=== PATIENT | female | born 1985 | race African-American/Black ===

== ENCOUNTER 2019-09-20 19:44 | Inpatient (IN) | payer OTHER ==
[~2019-09-20] VITALS: Ht 170.2 cm; Wt 70.3 kg
--- NOTE | 2019-09-20 20:00 | NUR ---
ED Nurse Note: pt presents to ED c/o uterine pain after having a uterine fibroid embolization procedure on tuesday. pt has not had a BM since then, cannot keep meds down, she was prescribed percocet and tramadol. pt reports mild bleeding. advised by OB Dr. Davenport to come in to ED. PT AO4. VSS. AMBULATORY WITH STEADY GAIT. REPORTS PAIN 10/10; FACIAL GRIMACING AND GRASPING NOTED. CHANGED INTO GOWN; ATTACHED TO MONITOR. BED LOCKED AT LOWEST POSTION; SIDE RAILS RAISED.
[2019-09-20] MEDS ORDERED: Omnipaque-300 100ml vial INJ PRN (20:15)
[2019-09-20 20:16] VITALS: BP 131/77
[2019-09-20] MEDS ORDERED: Morphine Sulfate 4mg/ml Inj (IV USE ONLY) ONE (20:22)
[2019-09-20 20:25] LABS: EOSINOPHILS % (AUTO) 0.2 % (0.0-3.0); HEMATOCRIT 34.9 % (37.0-47.0); HEMOGLOBIN 10.8 G/DL (12.0-16.0); LYMPHOCYTES % (AUTO) 9.3 % (20.0-45.0); MEAN CORPUSCULAR VOLUME 74 FL (80-99); MONOCYTES % (AUTO) 4.8 % (1.0-10.0); NEUTROPHILS % (AUTO) 84.8 % (45.0-75.0); PLATELET COUNT 309 K/UL (150-450); RED BLOOD COUNT 4.74 M/UL (4.20-5.40); RED CELL DISTRIBUTION WIDTH 21.1 % (11.6-14.8); WHITE BLOOD COUNT 11.1 K/UL (4.8-10.8)
--- NOTE | 2019-09-20 20:27 | NUR ---
ED Nurse Note: IV ACCESS ESTABLISHED. BLOOD COLLECTED; SENT DOWN TO LAB. UNABLE TO OBTAIN URINE; PT STATES SHE WILL PROVIDE WHEN ABLE. RECEIVED VERBAL ORDER FROM [facility] FOR 4MG MORPHINE IVP; NOTED AND CARRIED OUT.
[2019-09-20] MEDS ORDERED: Morphine Sulfate 4mg/ml Inj (IV USE ONLY) IVP ONE ×2 (20:30→21:15)
[2019-09-20 20:36] LABS: INR 0.9 (0.9-1.1)
[2019-09-20 20:53] LABS: ANION GAP 18 mmol/L (5-15); BLOOD UREA NITROGEN 6 mg/dL (7-18); CALCIUM 9.7 MG/DL (8.5-10.1); CARBON DIOXIDE 23 MMOL/L (21-32); CHLORIDE 99 MMOL/L (98-107); CREATININE 0.9 MG/DL (0.55-1.30); SODIUM 139 MMOL/L (136-145)
[2019-09-20 20:57] LABS: ALANINE AMINOTRANSFERASE 25 U/L (12-78); ALBUMIN 4.1 G/DL (3.4-5.0); ALBUMIN/GLOBULIN RATIO 0.9 (1.0-2.7); ALKALINE PHOSPHATASE 69 U/L (46-116); ASPARTATE AMINO TRANSFERASE 26 U/L (15-37); BILIRUBIN,TOTAL 0.5 MG/DL (0.2-1.0)
--- NOTE | 2019-09-20 21:10 | NUR ---
ED Nurse Note: RECEIVED VERBAL ORDER FROM [facility] FOR 4MG MORPHINE IVP; NOTED AND CARRIED OUT. URINE COLLECTED; SENT DOWN TO LAB.
--- NOTE | 2019-09-20 21:33 | NUR ---
NURSE NOTES: Received report from EMANUEL Mendez via phone. Pt will come to the unit in an hour.
--- NOTE | 2019-09-20 21:39 | Diagnostic Imaging Report ---
Clinical Indication: Abdominal pain, status post uterine fibroid embolization 2 days prior, no bowel movements, unable to keep medications down Technique: No oral contrast utilized, per emergency room physician request IV administration nonionic contrast. Venous phase spiral acquisition obtained through the abdomen and pelvis. Multiplanar reconstructions were generated. Total dose length product 284 mGycm. CTDIvol(s) 5 mGy. Dose reduction achieved using automated exposure control Comparison: none Findings: Uterus is enlarged, with multiple masses. The 2 largest of these are enhancing, contains linear collections of gas. A small amount of free fluid in the pelvic cul-de-sac. The ovaries are unremarkable. Appendix is not definitely visualized, but there are no findings to suggest acute appendicitis. The ascending colon is stool-filled. The transverse colon is gas filled and borderline distended. The descending colon is nondistended. Small bowel loops are nondistended, although a few small bowel loops are mildly fluid-filled and prominent. The distal esophagus, stomach, duodenum are unremarkable. The gallbladder contains what is presumably contrast from the prior uterine fibroid embolization procedure. The liver, bile ducts, pancreas, spleen, adrenals, kidneys are all unremarkable. No retroperitoneal mass or adenopathy.. A a single bubble of gas is seen within the bladder lumen. The included lung bases are clear. The bones are unremarkable. Impression: Typical appearance of the uterus, status post uterine fibroid embolization. No definite unusual features No definite acute process otherwise Stool-filled proximal colon, likely related to stated clinical history of constipation Prominent gas in the transverse colon, of doubtful significance Single bubble of gas within the bladder lumen, probably related to prior recent instrumentation. This agrees with the preliminary interpretation provided overnight by [facility]. The CT scanner at [facility] is accredited by the [employer] and the scans are performed using protocols designed to limit radiation exposure to as low as reasonably achievable to attain images of sufficient resolution adequate for diagnostic evaluation.
[2019-09-20 21:42] LABS: APPEARANCE,URINE SLIGHTLY CLOUDY; BILIRUBIN, URINE NEGATIVE (NEGATIVE); COLOR,URINE PALE YELLOW; GLUCOSE, URINE (UA) NEGATIVE (NEGATIVE); KETONES,URINE 4+ (NEGATIVE); LEUKOCYTE ESTERASE ,URINE NEGATIVE (NEGATIVE); NITRITE,URINE NEGATIVE (NEGATIVE); PH,URINE 8 (4.5-8.0); PROTEIN,URINE NEGATIVE (NEGATIVE); UROBILINOGEN,URINE NORMAL MG/DL (0.0-1.0)
[2019-09-20 22:00] VITALS: BP 128/77
--- NOTE | 2019-09-20 22:03 | NUR ---
ED Nurse Note: RECEIVED VERBAL ORDER FROM [facility] FOR 4MG MORPHINE IVP; NOTED AND CARRIED OUT.
[2019-09-20] MEDS ORDERED: Morphine Sulfate 4mg/ml Inj (IV USE ONLY) IVP PRN (22:15)
--- NOTE | 2019-09-20 22:15 | NUR ---
TRANSFER TO FLOOR: Patient transferred to [place] [id number] as ordered, per melecio kim. Report given to rossy dorantes. patient stable for transfer. transported to unit via wheelchair with [employer]. belongings list and admission packet sent with pt
[2019-09-20 22:20] VITALS: BP 124/83
--- NOTE | 2019-09-20 22:20 | NUR ---
NURSE NOTES: Pt arrived in the unit via wheelchair. Pt is awake, comfortably resting. Pt was able to transfer to bed without any assistance. No signs of acute distress noted. Pt reports pain of 7/10 in the abdomen area. AOx4;able to make needs known. Checked IV site; patent and flushed. No erythema, bleeding, or infiltration noted. Checked belonging's list with the pt. No item is missing. Bed at lowest position. Brakes on. Siderails up x2. Call light within reach. Will continue to monitor.
--- NOTE | 2019-09-20 22:43 | Emergency Room Report ---
History of Present Illness General Chief Complaint: Abdominal Pain Source: Patient Present Illness HPI This patient is 2 days status post uterine fibroid embolization. She complains of severe pain throughout her abdomen. She states she is also been severely constipated. She has been on Percocet. She states she has been vomiting and unable to take anything orally. She denies fever chills. She denies dysuria hematuria. She denies chest pain or shortness of breath. She denies headache or neck pain. She denies weakness. She has no other complaints. Allergies: Coded Allergies: No Known Allergies (Unverified , 09/20/19) Patient History Past Medical History: see triage record, other - Uterine fibroids Past Surgical History: other - s/p fibroid embolization Social History: Denies: smoking, alcohol use, drug use Last Menstrual Period: 09/05/2019 Reviewed Nursing Documentation: PMH: Agreed; PSxH: Agreed Review of Systems All Other Systems: negative except mentioned in HPI Physical Exam Vital Signs Date Time Temp Pulse Resp B/P (MAP) Pulse Ox O2 Delivery O2 Flow Rate FiO2 09/20/19 19:53 98.6 18 131/77 (95) 09/20/19 20:16 65 100 Room Air Sp02 EP Interpretation: reviewed, normal General Appearance: no apparent distress, alert, GCS 15, non-toxic Head: normocephalic, atraumatic Eyes: bilateral eye normal inspection, bilateral eye PERRL ENT: hearing grossly normal, normal pharynx, no angioedema, normal voice Neck: full range of motion, supple/symm/no masses Respiratory: chest non-tender, lungs clear, normal breath sounds, no respiratory distress, no retraction, no accessory muscle use, speaking full sentences Cardiovascular #1: regular rate, rhythm, no edema Gastrointestinal: normal bowel sounds, soft, non-distended, no guarding, no rebound, tenderness - TTP in the pelvis Rectal: deferred Musculoskeletal: back normal, normal range of motion, gait/station normal, non- tender Neurologic: alert, motor strength/tone normal, oriented x3, sensory intact, responsive, speech normal Psychiatric: judgement/insight normal, memory normal, mood/affect normal, no suicidal/homicidal ideation Skin: no rash, normal color Medical Decision Making Diagnostic Impression: Primary Impression: Uncontrolled Post Procedure Pain ER Course This patient has uncontrolled post procedure pain. She also has constipation. She underwent CT of the abdomen and pelvis which did show enlarged and heterogeneous uterus consistent with fibroids. There are findings consistent with the uterine artery embolization. There is no evidence of infection or other complications. The patient's laboratory work-up is reassuring. The patient is admitted for pain control and further monitoring by her primary surgeon. Laboratory Tests Test 09/20/19 20:05 White Blood Count 11.1 K/UL (4.8-10.8) H Red Blood Count 4.74 M/UL (4.20-5.40) Hemoglobin 10.8 G/DL (12.0-16.0) L Hematocrit 34.9 % (37.0-47.0) L Mean Corpuscular Volume 74 FL (80-99) L Mean Corpuscular Hemoglobin 22.8 PG (27.0-31.0) L Mean Corpuscular Hemoglobin Concent 30.9 G/DL (32.0-36.0) L Red Cell Distribution Width 21.1 % (11.6-14.8) H Platelet Count 309 K/UL (150-450) Mean Platelet Volume 8.7 FL (6.5-10.1) Neutrophils (%) (Auto) 84.8 % (45.0-75.0) H Lymphocytes (%) (Auto) 9.3 % (20.0-45.0) L Monocytes (%) (Auto) 4.8 % (1.0-10.0) Eosinophils (%) (Auto) 0.2 % (0.0-3.0) Basophils (%) (Auto) 1.0 % (0.0-2.0) Prothrombin Time 10.0 SEC (9.30-11.50) Prothrombin Time INR 0.9 (0.9-1.1) Activated Partial Thromboplast Time 26 SEC (23-33) Urine Color Pale yellow Urine Appearance Slightly cloudy Urine pH 8 (4.5-8.0) Urine Specific [place] 1.010 (1.005-1.035) Urine Protein Negative (NEGATIVE) Urine Glucose (UA) Negative (NEGATIVE) Urine Ketones 4+ (NEGATIVE) H Urine Blood 5+ (NEGATIVE) H Urine Nitrite Negative (NEGATIVE) Urine Bilirubin Negative (NEGATIVE) Urine Urobilinogen Normal MG/DL (0.0-1.0) Urine Leukocyte Esterase Negative (NEGATIVE) Urine RBC Tntc /HPF (0 - 2) H Urine WBC 0 /HPF (0 - 2) Urine Squamous Epithelial Cells Moderate /LPF (NONE/OCC) H Urine Bacteria Occasional /HPF (NONE) Sodium Level 139 MMOL/L (136-145) Potassium Level 3.0 MMOL/L (3.5-5.1) L Chloride Level 99 MMOL/L (98-107) Carbon Dioxide Level 23 MMOL/L (21-32) Anion Gap 18 mmol/L (5-15) H Blood Urea Nitrogen 6 mg/dL (7-18) L Creatinine 0.9 MG/DL (0.55-1.30) Estimate Glomerular Filtration Rate > 60 mL/min (>60) Glucose Level 103 MG/DL (74-106) Calcium Level 9.7 MG/DL (8.5-10.1) Total Bilirubin 0.5 MG/DL (0.2-1.0) Aspartate Amino Transferase (AST) 26 U/L (15-37) Alanine Aminotransferase (ALT) 25 U/L (12-78) Alkaline Phosphatase 69 U/L (46-116) Total Protein 8.8 G/DL (6.4-8.2) H Albumin 4.1 G/DL (3.4-5.0) Globulin 4.7 g/dL Albumin/Globulin Ratio 0.9 (1.0-2.7) L CT/MRI/US Diagnostic Results CT/MRI/US Diagnostic Results : Imaging Test Ordered: CT abd/pelvis Impression The uterus is enlarged and heterogeneous and likely contains multiple fibroids. Some mild infiltration of the fat is suspected adjacent to the uterus. Linear areas of decreased density are seen within a suspected fibroid which is suspicious for gas. This can be seen normally in the setting of recent uterine artery embolization. An infectious process/pyomyoma cannot be excluded. Correlation with clinical findings is recommended. Small amount of gas in the bladder which may be related to recent bladder catheterization if the patient had a recent bladder catheterization. An infectious process cannot be excluded radiographically. The appendix is not clearly identified. No definite evidence for pericecal inflammatory changes. No evidence for bowel related inflammatory changes. No evidence for significant bowel loop dilation to suggest an obstructive process. Increased density in the gallbladder which may be related to vicarious excretion of contrast material, gallstones, and/or sludge. No definite CT evidence for pericholecystic inflammatory changes. The intra-abdominal organs are otherwise unremarkable. Small amount of nonspecific free fluid in the pelvis. No evidence for free intraperitoneal gas. Small umbilical hernia containing fat only. Mild degenerative changes of the thoracolumbar spine. Last Vital Signs Date Time Temp Pulse Resp B/P (MAP) Pulse Ox O2 Delivery O2 Flow Rate FiO2 09/20/19 21:02 98.6 09/20/19 20:16 65 18 131/77 100 Room Air Status: improved Disposition: ADMITTED INPATIENT Condition: Stable Scripts Unable to Obtain Active Prescriptions or Reported Meds Referrals: NON PHYSICIAN (PCP) Aleksandra Thorpe DO Sep 20, 2019 22:43
[2019-09-20] MEDS ORDERED: ceFAZolin 1gm/50ml Premix 50 ML IV SCH (23:00)
[2019-09-20] MEDS: ceFAZolin sod 1 GM in D5W 55 ML IVP SCH (23:18)
[2019-09-20] MEDS: Potassium Chloride 20 MEQ in Dextrose 5%/Lactated Ringer's 1,000 ML IV SCH (23:18)
[2019-09-20] MEDS: HYDROmorphone 1mg/ml Carpuject IVP PRN (23:19)
[2019-09-21] VITALS: BP 120/72
[2019-09-21] MEDS: HYDROmorphone 1mg/ml Carpuject IVP PRN ×2 (03:58→07:00)
[2019-09-21 04:00] VITALS: BP 128/84
[2019-09-21] MEDS: Potassium Chloride 20 MEQ in Dextrose 5%/Lactated Ringer's 1,000 ML IV SCH ×3 (06:08→23:33)
[2019-09-21] MEDS: ceFAZolin sod 1 GM in D5W 55 ML IVP SCH ×3 (06:09→21:50)
[2019-09-21 06:16] LABS: ALANINE AMINOTRANSFERASE 21 U/L (12-78); ALBUMIN 3.2 G/DL (3.4-5.0); ALBUMIN/GLOBULIN RATIO 0.8 (1.0-2.7); ALKALINE PHOSPHATASE 54 U/L (46-116); ANION GAP 12 mmol/L (5-15); ASPARTATE AMINO TRANSFERASE 20 U/L (15-37); BILIRUBIN,TOTAL 0.3 MG/DL (0.2-1.0); BLOOD UREA NITROGEN 5 mg/dL (7-18); CALCIUM 9.1 MG/DL (8.5-10.1); CARBON DIOXIDE 24 MMOL/L (21-32); CHLORIDE 105 MMOL/L (98-107); CREATININE 0.7 MG/DL (0.55-1.30); SODIUM 141 MMOL/L (136-145)
[2019-09-21 06:43] LABS: BASOPHILS % (AUTO) 0.5 % (0.0-2.0); EOSINOPHILS % (AUTO) 0.7 % (0.0-3.0); HEMATOCRIT 30.9 % (37.0-47.0); HEMOGLOBIN 9.7 G/DL (12.0-16.0); LYMPHOCYTES % (AUTO) 14.9 % (20.0-45.0); MEAN CORPUSCULAR VOLUME 75 FL (80-99); MONOCYTES % (AUTO) 10.9 % (1.0-10.0); PLATELET COUNT 243 K/UL (150-450); RED BLOOD COUNT 4.09 M/UL (4.20-5.40); RED CELL DISTRIBUTION WIDTH 19.2 % (11.6-14.8); WHITE BLOOD COUNT 9.2 K/UL (4.8-10.8)
--- NOTE | 2019-09-21 07:49 | NUR ---
HAND-OFF: Report given to EMANUEL Caballero. Pt is awake and in stable condition. Plan of care endorsed.
--- NOTE | 2019-09-21 07:56 | NUR ---
NURSE NOTES: Received patient in bed awake. No SOB or acute distress. IV line intact. HOB elevated. Bed locked in lowest position. Call light within reach. Will continue plan of care.
[2019-09-21 08:00] VITALS: BP 108/71
--- NOTE | 2019-09-21 08:43 | General Progress Note ---
Assessment/Plan Assessment/Plan: abd pain constipation anemia post uterine embolization trial of relistor bowel regimen CT reviewed anemia work up pain control Subjective ROS Limited/Unobtainable: Yes Allergies: Coded Allergies: No Known Allergies (Unverified , 09/20/19) Objective Last 24 Hour Vital Signs Date Time Temp Pulse Resp B/P (MAP) Pulse Ox O2 Delivery O2 Flow Rate FiO2 09/21/19 08:00 98.6 51 20 108/71 (83) 98 09/21/19 04:00 99.1 58 20 128/84 (99) 98 09/21/19 00:00 98.7 51 20 120/72 (88) 100 09/20/19 22:40 Room Air 09/20/19 22:20 99.3 58 20 124/83 (97) 98 09/20/19 22:15 98.6 67 18 128/77 100 Room Air 09/20/19 22:00 98.6 67 18 128/77 100 Room Air 09/20/19 21:02 98.6 09/20/19 20:16 65 18 Room Air 09/20/19 20:16 98.6 65 18 131/77 100 Room Air 09/20/19 19:53 98.6 18 131/77 (95) Intake and Output 09/20/19 09/21/19 19:00 07:00 Intake Total 350 ml Balance 350 ml Intake Oral 350 ml # Voids 4 Laboratory Tests 09/20/19 20:05: White Blood Count 11.1H, Red Blood Count 4.74, Hemoglobin 10.8L, Hematocrit 34.9L, Mean Corpuscular Volume 74L, Mean Corpuscular Hemoglobin 22.8L, Mean Corpuscular Hemoglobin Concent 30.9L, Red Cell Distribution Width 21.1H, Platelet Count 309, Mean Platelet Volume 8.7, Neutrophils (%) (Auto) 84.8H, Lymphocytes (%) (Auto) 9.3L, Monocytes (%) (Auto) 4.8, Eosinophils (%) (Auto) 0.2, Basophils (%) (Auto) 1.0, Prothrombin Time 10.0, Prothromb Time International Ratio 0.9, Activated Partial Thromboplast Time 26, Urine Color Pale yellow, Urine Appearance Slightly cloudy, Urine pH 8, Urine Specific [place] 1.010, Urine Protein Negative, Urine Glucose (UA) Negative, Urine Ketones 4+H, Urine Blood 5+H, Urine Nitrite Negative, Urine Bilirubin Negative, Urine Urobilinogen Normal, Urine Leukocyte Esterase Negative, Urine RBC TntcH, Urine WBC 0, Urine Squamous Epithelial Cells ModerateH, Urine Bacteria Occasional, Sodium Level 139, Potassium Level 3.0L, Chloride Level 99, Carbon Dioxide Level 23, Anion Gap 18H, Blood Urea Nitrogen 6L, Creatinine 0.9, Estimat Glomerular Filtration Rate > 60, Glucose Level 103, Calcium Level 9.7, Total Bilirubin 0.5, Aspartate Amino Transf (AST/SGOT) 26, Alanine Aminotransferase (ALT/SGPT) 25, Alkaline Phosphatase 69, Total Protein 8.8H, Albumin 4.1, Globulin 4.7, Albumin/Globulin Ratio 0.9L 09/21/19 05:00: White Blood Count 9.2, Red Blood Count 4.09L, Hemoglobin 9.7L, Hematocrit 30.9L , Mean Corpuscular Volume 75L, Mean Corpuscular Hemoglobin 23.6L, Mean Corpuscular Hemoglobin Concent 31.3L, Red Cell Distribution Width 19.2H, Platelet Count 243, Mean Platelet Volume 7.7, Neutrophils (%) (Auto) 73.0, Lymphocytes (%) (Auto) 14.9L, Monocytes (%) (Auto) 10.9H, Eosinophils (%) (Auto ) 0.7, Basophils (%) (Auto) 0.5, Sodium Level 141, Potassium Level 4.0, Chloride Level 105, Carbon Dioxide Level 24, Anion Gap 12, Blood Urea Nitrogen 5L, Creatinine 0.7, Estimat Glomerular Filtration Rate > 60, Glucose Level 110H , Calcium Level 9.1, Total Bilirubin 0.3, Aspartate Amino Transf (AST/SGOT) 20, Alanine Aminotransferase (ALT/SGPT) 21, Alkaline Phosphatase 54, Total Protein 7.1, Albumin 3.2L, Globulin 3.9, Albumin/Globulin Ratio 0.8L Height (Feet): 5 Height (Inches): 7.00 Weight (Pounds): 155 General Appearance: alert EENT: PERRL/EOMI Neck: supple Cardiovascular: normal rate Respiratory/Chest: decreased breath sounds Abdomen: hypoactive bowel sounds, tender Extremities: non-tender Ashvin Goodwin MD Sep 21, 2019 08:43
[2019-09-21] MEDS: Lactulose 20gm/30ml UDC ORAL SCH ×3 (09:13→17:14)
[2019-09-21] MEDS: Docusate 100mg cap ORAL SCH ×2 (09:13→17:14)
[2019-09-21] MEDS: Relistor 12mg/0.6ml Vial SUBQ SCH (10:27)
--- NOTE | 2019-09-21 11:26 | General Surgery Progress Note ---
General Surgery-Progress Note Subjective Day of Surgery: september 18 Procedure Performed uterine artery embolization Symptoms: improved, voiding well, pain decreased Objective Last 24 Hour Vital Signs Date Time Temp Pulse Resp B/P (MAP) Pulse Ox O2 Delivery O2 Flow Rate FiO2 09/21/19 08:00 98.6 51 20 108/71 (83) 98 09/21/19 04:00 99.1 58 20 128/84 (99) 98 09/21/19 00:00 98.7 51 20 120/72 (88) 100 09/20/19 22:40 Room Air 09/20/19 22:20 99.3 58 20 124/83 (97) 98 09/20/19 22:15 98.6 67 18 128/77 100 Room Air 09/20/19 22:00 98.6 67 18 128/77 100 Room Air 09/20/19 21:02 98.6 09/20/19 20:16 65 18 Room Air 09/20/19 20:16 98.6 65 18 131/77 100 Room Air 09/20/19 19:53 98.6 18 131/77 (95) I&O Intake and Output 09/20/19 09/21/19 19:00 07:00 Intake Total 350 ml Balance 350 ml Intake Oral 350 ml # Voids 4 Dressing: dry Wound: clean Drains: none Cardiovascular: RSR Respiratory: clear Abdomen: soft, flat, scaphoid, tenderness, decreased bowel sounds Extremities: no edema, no tenderness, no cyanosis Laboratory Tests Test 09/20/19 20:05 09/21/19 05:00 White Blood Count 11.1 K/UL (4.8-10.8) H 9.2 K/UL (4.8-10.8) Red Blood Count 4.74 M/UL (4.20-5.40) 4.09 M/UL (4.20-5.40) L Hemoglobin 10.8 G/DL (12.0-16.0) L 9.7 G/DL (12.0-16.0) L Hematocrit 34.9 % (37.0-47.0) L 30.9 % (37.0-47.0) L Mean Corpuscular Volume 74 FL (80-99) L 75 FL (80-99) L Mean Corpuscular Hemoglobin 22.8 PG (27.0-31.0) L 23.6 PG (27.0-31.0) L Mean Corpuscular Hemoglobin Concent 30.9 G/DL (32.0-36.0) L 31.3 G/DL (32.0-36.0) L Red Cell Distribution Width 21.1 % (11.6-14.8) H 19.2 % (11.6-14.8) H Platelet Count 309 K/UL (150-450) 243 K/UL (150-450) Mean Platelet Volume 8.7 FL (6.5-10.1) 7.7 FL (6.5-10.1) Neutrophils (%) (Auto) 84.8 % (45.0-75.0) H 73.0 % (45.0-75.0) Lymphocytes (%) (Auto) 9.3 % (20.0-45.0) L 14.9 % (20.0-45.0) L Monocytes (%) (Auto) 4.8 % (1.0-10.0) 10.9 % (1.0-10.0) H Eosinophils (%) (Auto) 0.2 % (0.0-3.0) 0.7 % (0.0-3.0) Basophils (%) (Auto) 1.0 % (0.0-2.0) 0.5 % (0.0-2.0) Prothrombin Time 10.0 SEC (9.30-11.50) Prothromb Time International Ratio 0.9 (0.9-1.1) Activated Partial Thromboplast Time 26 SEC (23-33) Urine Color Pale yellow Urine Appearance Slightly cloudy Urine pH 8 (4.5-8.0) Urine Specific [place] 1.010 (1.005-1.035) Urine Protein Negative (NEGATIVE) Urine Glucose (UA) Negative (NEGATIVE) Urine Ketones 4+ (NEGATIVE) H Urine Blood 5+ (NEGATIVE) H Urine Nitrite Negative (NEGATIVE) Urine Bilirubin Negative (NEGATIVE) Urine Urobilinogen Normal MG/DL (0.0-1.0) Urine Leukocyte Esterase Negative (NEGATIVE) Urine RBC Tntc /HPF (0 - 2) H Urine WBC 0 /HPF (0 - 2) Urine Squamous Epithelial Cells Moderate /LPF (NONE/OCC) H Urine Bacteria Occasional /HPF (NONE) Sodium Level 139 MMOL/L (136-145) 141 MMOL/L (136-145) Potassium Level 3.0 MMOL/L (3.5-5.1) L 4.0 MMOL/L (3.5-5.1) Chloride Level 99 MMOL/L (98-107) 105 MMOL/L (98-107) Carbon Dioxide Level 23 MMOL/L (21-32) 24 MMOL/L (21-32) Anion Gap 18 mmol/L (5-15) H 12 mmol/L (5-15) Blood Urea Nitrogen 6 mg/dL (7-18) L 5 mg/dL (7-18) L Creatinine 0.9 MG/DL (0.55-1.30) 0.7 MG/DL (0.55-1.30) Estimat Glomerular Filtration Rate > 60 mL/min (>60) > 60 mL/min (>60) Glucose Level 103 MG/DL (74-106) 110 MG/DL (74-106) H Calcium Level 9.7 MG/DL (8.5-10.1) 9.1 MG/DL (8.5-10.1) Total Bilirubin 0.5 MG/DL (0.2-1.0) 0.3 MG/DL (0.2-1.0) Aspartate Amino Transf (AST/SGOT) 26 U/L (15-37) 20 U/L (15-37) Alanine Aminotransferase (ALT/SGPT) 25 U/L (12-78) 21 U/L (12-78) Alkaline Phosphatase 69 U/L (46-116) 54 U/L (46-116) Total Protein 8.8 G/DL (6.4-8.2) H 7.1 G/DL (6.4-8.2) Albumin 4.1 G/DL (3.4-5.0) 3.2 G/DL (3.4-5.0) L Globulin 4.7 g/dL 3.9 g/dL Albumin/Globulin Ratio 0.9 (1.0-2.7) L 0.8 (1.0-2.7) L Imaging no acute findings on CT abdomen, pelvis Plan Additional Comments constipation, anemia, IM and GI consults, iv venofer. ambulate. Joseph Mason MD Sep 21, 2019 11:26
[2019-09-21 12:00] VITALS: BP 121/72
[2019-09-21] MEDS ORDERED: Iron Sucrose 100 MG in NS 55 ML IV SCH (12:00)
--- NOTE | 2019-09-21 14:05 | History & Physical ---
History and Physical History & Physicial CC: Abd pain HPI: 34 F h/o fibroids S/P UFE with post-op pain, + pain no N no V no BM + flatus Pain was not controlled on OP regimen but feels better now PMH: Uterine Fibroids PSH: UFE, D&C ALL: NKDA Active Scripts Medications Dose Route/Sig Max Daily Dose Days Date Category Active Prescriptions or Reported Medications Unobtainable Rx SHX: No T, occ EtOH, + MJ no no other drugs FHx: N/C ROS: Neg other than HPI PE: Vital Sign - Last 24 Hours 09/20/19 09/20/19 09/20/19 09/20/19 19:53 20:16 20:16 21:02 Temp 98.6 98.6 98.6 Pulse 65 65 Resp 18 18 18 B/P (MAP) 131/77 (95) 131/77 Pulse Ox 100 O2 Delivery Room Air Room Air 09/20/19 09/20/19 09/20/19 09/20/19 22:00 22:15 22:20 22:40 Temp 98.6 98.6 99.3 Pulse 67 67 58 Resp 18 18 20 B/P (MAP) 128/77 128/77 124/83 (97) Pulse Ox 100 100 98 O2 Delivery Room Air Room Air Room Air 09/21/19 09/21/19 09/21/19 00:00 04:00 08:00 Temp 98.7 99.1 98.6 Pulse 51 58 51 Resp 20 20 20 B/P (MAP) 120/72 (88) 128/84 (99) 108/71 (83) Pulse Ox 100 98 98 Intake and Output 09/20/19 09/20/19 09/21/19 15:00 23:00 07:00 Intake Total 350 ml Balance 350 ml NAD, AAOx3 NC/AT, OPC c MMM Supple s LAD or JVD CTA RRR Mild diffuse TTP, S/ND c NABS No C/C/E Laboratory Tests Test 09/20/19 20:05 09/21/19 05:00 White Blood Count 11.1 K/UL (4.8-10.8) H 9.2 K/UL (4.8-10.8) Red Blood Count 4.74 M/UL (4.20-5.40) 4.09 M/UL (4.20-5.40) L Hemoglobin 10.8 G/DL (12.0-16.0) L 9.7 G/DL (12.0-16.0) L Hematocrit 34.9 % (37.0-47.0) L 30.9 % (37.0-47.0) L Mean Corpuscular Volume 74 FL (80-99) L 75 FL (80-99) L Mean Corpuscular Hemoglobin 22.8 PG (27.0-31.0) L 23.6 PG (27.0-31.0) L Mean Corpuscular Hemoglobin Concent 30.9 G/DL (32.0-36.0) L 31.3 G/DL (32.0-36.0) L Red Cell Distribution Width 21.1 % (11.6-14.8) H 19.2 % (11.6-14.8) H Platelet Count 309 K/UL (150-450) 243 K/UL (150-450) Mean Platelet Volume 8.7 FL (6.5-10.1) 7.7 FL (6.5-10.1) Neutrophils (%) (Auto) 84.8 % (45.0-75.0) H 73.0 % (45.0-75.0) Lymphocytes (%) (Auto) 9.3 % (20.0-45.0) L 14.9 % (20.0-45.0) L Monocytes (%) (Auto) 4.8 % (1.0-10.0) 10.9 % (1.0-10.0) H Eosinophils (%) (Auto) 0.2 % (0.0-3.0) 0.7 % (0.0-3.0) Basophils (%) (Auto) 1.0 % (0.0-2.0) 0.5 % (0.0-2.0) Prothrombin Time 10.0 SEC (9.30-11.50) Prothromb Time International Ratio 0.9 (0.9-1.1) Activated Partial Thromboplast Time 26 SEC (23-33) Urine Color Pale yellow Urine Appearance Slightly cloudy Urine pH 8 (4.5-8.0) Urine Specific [place] 1.010 (1.005-1.035) Urine Protein Negative (NEGATIVE) Urine Glucose (UA) Negative (NEGATIVE) Urine Ketones 4+ (NEGATIVE) H Urine Blood 5+ (NEGATIVE) H Urine Nitrite Negative (NEGATIVE) Urine Bilirubin Negative (NEGATIVE) Urine Urobilinogen Normal MG/DL (0.0-1.0) Urine Leukocyte Esterase Negative (NEGATIVE) Urine RBC Tntc /HPF (0 - 2) H Urine WBC 0 /HPF (0 - 2) Urine Squamous Epithelial Cells Moderate /LPF (NONE/OCC) H Urine Bacteria Occasional /HPF (NONE) Sodium Level 139 MMOL/L (136-145) 141 MMOL/L (136-145) Potassium Level 3.0 MMOL/L (3.5-5.1) L 4.0 MMOL/L (3.5-5.1) Chloride Level 99 MMOL/L (98-107) 105 MMOL/L (98-107) Carbon Dioxide Level 23 MMOL/L (21-32) 24 MMOL/L (21-32) Anion Gap 18 mmol/L (5-15) H 12 mmol/L (5-15) Blood Urea Nitrogen 6 mg/dL (7-18) L 5 mg/dL (7-18) L Creatinine 0.9 MG/DL (0.55-1.30) 0.7 MG/DL (0.55-1.30) Estimat Glomerular Filtration Rate > 60 mL/min (>60) > 60 mL/min (>60) Glucose Level 103 MG/DL (74-106) 110 MG/DL (74-106) H Calcium Level 9.7 MG/DL (8.5-10.1) 9.1 MG/DL (8.5-10.1) Total Bilirubin 0.5 MG/DL (0.2-1.0) 0.3 MG/DL (0.2-1.0) Aspartate Amino Transf (AST/SGOT) 26 U/L (15-37) 20 U/L (15-37) Alanine Aminotransferase (ALT/SGPT) 25 U/L (12-78) 21 U/L (12-78) Alkaline Phosphatase 69 U/L (46-116) 54 U/L (46-116) Total Protein 8.8 G/DL (6.4-8.2) H 7.1 G/DL (6.4-8.2) Albumin 4.1 G/DL (3.4-5.0) 3.2 G/DL (3.4-5.0) L Globulin 4.7 g/dL 3.9 g/dL Albumin/Globulin Ratio 0.9 (1.0-2.7) L 0.8 (1.0-2.7) L CT AP: Impression: Typical appearance of the uterus, status post uterine fibroid embolization. No definite unusual features No definite acute process otherwise Stool-filled proximal colon, likely related to stated clinical history of constipation Prominent gas in the transverse colon, of doubtful significance Single bubble of gas within the bladder lumen, probably related to prior recent instrumentation. ASSESSMENT: * Uterine fibroids S/P UFE * Post-op pain * Constipation, likely opiate induced * Anemia PLAN: * Pain control/supportive care * Bowel regimen * IS * F/U Dr. Mason recs * F/U GI recs * DVT Px: OOB, encourage ambulation, SCD's * FC Blaine Benz MD Sep 21, 2019 14:05
[2019-09-21] MEDS ORDERED: Milk of Magnesia 30ml Ud ORAL SCH (14:45)
[2019-09-21] MEDS ORDERED: Milk of Magnesia 30ml Ud ORAL PRN (14:45)
--- NOTE | 2019-09-21 14:45 | Consultation ---
History of Present Illness General Date patient seen: Sep 21, 2019 Reason for Hospitalization: Abdominal Pain Present Illness HPI This is a very pleasant 34-year-old female with history of symptomatic fibroids that recently had a uterine fibroid embolization by Dr. Joseph Mason and presented with severe abdominal pain few days after. Patient states 10 out of 10 cramping generalized abdominal pain unable to tolerate oral diet feels severely constipated has been taking pain medication without enough relief. Came to emergency room at [facility] for evaluation and was admitted for further care and management. Surgery called to evaluate given the amount abdominal pain ensure no other pathological process happening. Patient seen, patient evaluated, chart reviewed. CT reviewed. Long discussion had with patient at bedside regards to her care plan examination and physical findings. Patient currently states having pain but improving with the narcotic pain medication. She still not able to take in much oral intake. She still having significant constipation states she is usually very regular but feels very constipated at this time. Allergies: Coded Allergies: No Known Allergies (Unverified , 09/20/19) Medication History Unable to Obtain Active Prescriptions or Reported Meds Patient History History Provided By: Patient, Medical Record, PMD Healthcare decision maker Resuscitation status Full Code Advanced Directive on File No Past Medical/Surgical History Past Medical/Surgical History: (1) Uncontrolled Post Procedure Pain Review of Systems Review of Symptoms General ROS: no weight loss or fever Psychological ROS: no depression or mood changes, no memory loss Ophthalmic ROS: no visual changes or eye irritation ENT ROS: no nasal congestion, hearing loss, dizziness Allergy and Immunology ROS: no allergic symptoms or urticaria Hematological and Lymphatic ROS: no swollen glands, unusual bleeding or bruising Endocrine ROS: no polyuria, polydipsia, weight changes, temperature intolerance Respiratory ROS: no cough, shortness of breath, or wheezing Cardiovascular ROS: no chest pain or dyspnea on exertion Gastrointestinal ROS: abdominal pain, bright red blood in stool. Musculoskeletal ROS: no myalgias or arthralgias Neurological ROS: no TIA or stroke symptoms Dermatological ROS: no new or changing skin lesions, rashes or pruritis Physical Exam Physical Exam General appearance: alert, cooperative, no distress, appears stated age Head: Normocephalic, without obvious abnormality, atraumatic Eyes: conjunctivae/corneas clear. PERRL, EOM's intact. Fundi benign Throat: Lips, mucosa, and tongue normal. Teeth and gums normal Neck: supple, symmetrical, trachea midline, no adenopathy, thyroid: not enlarged, symmetric, no tenderness/mass/nodules, no carotid bruit and no JVD Lungs: clear to auscultation bilaterally Heart: regular rate and rhythm, S1, S2 normal, no murmur, click, rub or gallop Abdomen: soft, tender. Bowel sounds normal. No masses, no organomegaly Extremities: extremities normal, atraumatic, no cyanosis or edema Pulses: 2+ and symmetric Skin: Skin color, texture, turgor normal. No rashes or lesions Neurologic: Grossly normal Last 24 Hour Vital Signs Date Time Temp Pulse Resp B/P (MAP) Pulse Ox O2 Delivery O2 Flow Rate FiO2 09/21/19 12:00 98.3 56 20 121/72 (88) 98 09/21/19 08:00 98.6 51 20 108/71 (83) 98 09/21/19 04:00 99.1 58 20 128/84 (99) 98 09/21/19 00:00 98.7 51 20 120/72 (88) 100 09/20/19 22:40 Room Air 09/20/19 22:20 99.3 58 20 124/83 (97) 98 09/20/19 22:15 98.6 67 18 128/77 100 Room Air 09/20/19 22:00 98.6 67 18 128/77 100 Room Air 09/20/19 21:02 98.6 09/20/19 20:16 65 18 Room Air 09/20/19 20:16 98.6 65 18 131/77 100 Room Air 09/20/19 19:53 98.6 18 131/77 (95) Intake and Output 09/20/19 09/21/19 19:00 07:00 Intake Total 350 ml Balance 350 ml Intake Oral 350 ml # Voids 4 Laboratory Tests Test 09/20/19 20:05 09/21/19 05:00 White Blood Count 11.1 K/UL (4.8-10.8) H 9.2 K/UL (4.8-10.8) Red Blood Count 4.74 M/UL (4.20-5.40) 4.09 M/UL (4.20-5.40) L Hemoglobin 10.8 G/DL (12.0-16.0) L 9.7 G/DL (12.0-16.0) L Hematocrit 34.9 % (37.0-47.0) L 30.9 % (37.0-47.0) L Mean Corpuscular Volume 74 FL (80-99) L 75 FL (80-99) L Mean Corpuscular Hemoglobin 22.8 PG (27.0-31.0) L 23.6 PG (27.0-31.0) L Mean Corpuscular Hemoglobin Concent 30.9 G/DL (32.0-36.0) L 31.3 G/DL (32.0-36.0) L Red Cell Distribution Width 21.1 % (11.6-14.8) H 19.2 % (11.6-14.8) H Platelet Count 309 K/UL (150-450) 243 K/UL (150-450) Mean Platelet Volume 8.7 FL (6.5-10.1) 7.7 FL (6.5-10.1) Neutrophils (%) (Auto) 84.8 % (45.0-75.0) H 73.0 % (45.0-75.0) Lymphocytes (%) (Auto) 9.3 % (20.0-45.0) L 14.9 % (20.0-45.0) L Monocytes (%) (Auto) 4.8 % (1.0-10.0) 10.9 % (1.0-10.0) H Eosinophils (%) (Auto) 0.2 % (0.0-3.0) 0.7 % (0.0-3.0) Basophils (%) (Auto) 1.0 % (0.0-2.0) 0.5 % (0.0-2.0) Prothrombin Time 10.0 SEC (9.30-11.50) Prothromb Time International Ratio 0.9 (0.9-1.1) Activated Partial Thromboplast Time 26 SEC (23-33) Urine Color Pale yellow Urine Appearance Slightly cloudy Urine pH 8 (4.5-8.0) Urine Specific [place] 1.010 (1.005-1.035) Urine Protein Negative (NEGATIVE) Urine Glucose (UA) Negative (NEGATIVE) Urine Ketones 4+ (NEGATIVE) H Urine Blood 5+ (NEGATIVE) H Urine Nitrite Negative (NEGATIVE) Urine Bilirubin Negative (NEGATIVE) Urine Urobilinogen Normal MG/DL (0.0-1.0) Urine Leukocyte Esterase Negative (NEGATIVE) Urine RBC Tntc /HPF (0 - 2) H Urine WBC 0 /HPF (0 - 2) Urine Squamous Epithelial Cells Moderate /LPF (NONE/OCC) H Urine Bacteria Occasional /HPF (NONE) Sodium Level 139 MMOL/L (136-145) 141 MMOL/L (136-145) Potassium Level 3.0 MMOL/L (3.5-5.1) L 4.0 MMOL/L (3.5-5.1) Chloride Level 99 MMOL/L (98-107) 105 MMOL/L (98-107) Carbon Dioxide Level 23 MMOL/L (21-32) 24 MMOL/L (21-32) Anion Gap 18 mmol/L (5-15) H 12 mmol/L (5-15) Blood Urea Nitrogen 6 mg/dL (7-18) L 5 mg/dL (7-18) L Creatinine 0.9 MG/DL (0.55-1.30) 0.7 MG/DL (0.55-1.30) Estimat Glomerular Filtration Rate > 60 mL/min (>60) > 60 mL/min (>60) Glucose Level 103 MG/DL (74-106) 110 MG/DL (74-106) H Calcium Level 9.7 MG/DL (8.5-10.1) 9.1 MG/DL (8.5-10.1) Total Bilirubin 0.5 MG/DL (0.2-1.0) 0.3 MG/DL (0.2-1.0) Aspartate Amino Transf (AST/SGOT) 26 U/L (15-37) 20 U/L (15-37) Alanine Aminotransferase (ALT/SGPT) 25 U/L (12-78) 21 U/L (12-78) Alkaline Phosphatase 69 U/L (46-116) 54 U/L (46-116) Total Protein 8.8 G/DL (6.4-8.2) H 7.1 G/DL (6.4-8.2) Albumin 4.1 G/DL (3.4-5.0) 3.2 G/DL (3.4-5.0) L Globulin 4.7 g/dL 3.9 g/dL Albumin/Globulin Ratio 0.9 (1.0-2.7) L 0.8 (1.0-2.7) L Height (Feet): 5 Height (Inches): 7.00 Weight (Pounds): 155 Medications Current Medications Medications (Trade) Dose Ordered Sig/Rani Route PRN Reason Start Time Stop Time Status Last Admin Dose Admin Barium Sulfate (Readi-Cat 2) 450 ml NOW PRN ORAL Radiology Procedure 09/20/19 20:15 09/22/19 20:15 Cefazolin Sodium 1 gm/Dextrose 55 ml @ 110 mls/hr Q8HR IVP 09/20/19 23:30 09/27/19 23:29 09/21/19 13:10 Docusate Sodium (Colace) 100 mg TWICE A DAY ORAL 09/21/19 09:00 10/21/19 08:59 09/21/19 09:13 Hydromorphone HCl (Dilaudid) 1 mg Q3HR PRN IVP For Pain 09/20/19 21:45 09/27/19 21:44 09/21/19 07:00 Hydromorphone HCl (Dilaudid) 2 mg Q2H PRN IVP Severe Pain (Pain Scale 7-10) 09/20/19 21:45 09/27/19 21:44 09/21/19 13:51 Hydromorphone HCl (Dilaudid) 2 mg Q3H PRN IVP Moderate Pain (Pain Scale 4-6) 09/20/19 21:45 09/27/19 21:44 Iohexol (OMNIPAQUE-300 100ml) 100 ml NOW PRN INJ Radiology Procedure 09/20/19 20:15 09/22/19 20:15 Iron Sucrose 100 mg/Sodium Chloride 60 ml @ 240 mls/hr BEDTIME IV 09/22/19 21:00 09/26/19 21:14 Lactulose (Cephulac) 20 gm THREE TIMES A DAY ORAL 09/21/19 09:00 10/21/19 08:59 09/21/19 13:10 Methylnaltrexone [place] (Relistor) 12 mg QOD SUBQ 09/21/19 09:00 10/21/19 08:59 09/21/19 10:27 Ondansetron HCl (Zofran) 4 mg Q6H PRN IVP Nausea & Vomiting 09/20/19 21:45 10/20/19 21:44 Polyethylene Glycol (Miralax) 17 gm BEDTIME ORAL 09/21/19 21:00 10/21/19 20:59 Potassium Chloride 20 meq/ Dextrose/Lactated Ringer's 1,010 ml @ 125 mls/hr Q8H5M IV 09/20/19 23:00 10/20/19 22:59 09/21/19 06:08 Assessment/Plan Problem List: (1) Uncontrolled Post Procedure Pain Assessment & Plan: 34-year-old female with severe abdominal pain post procedure. Constipation. CT reviewed labs reviewed. No acute surgical intervention indicated recommended. Patient likely severely constipated as well as having post procedure pain. No acute surgical intra-abdominal process identified though her exam does elicit a fair amount of tenderness. Will follow with recommendations and serial abdominal examinations. Trend labs. IV antibiotics. Bowel regimen. Patient will be monitored closely. Thank you for let me participate in patient's care Kip Avalos Sep 21, 2019 14:45
--- NOTE | 2019-09-21 15:00 | NUR ---
*-* NO INSURANCE INFORMATION IN THE BAR UNABLE SEND CLINICALS OR REVIEWS *-*
[2019-09-21] MEDS ORDERED: Fleet's Mineral Oil Enema RECTAL SCH (15:45)
--- NOTE | 2019-09-21 16:09 | NUR ---
NURSE NOTES: Fleet enema given as ordered
--- NOTE | 2019-09-21 18:22 | NUR ---
NURSE NOTES: No bowel movement, Dr Boateng aware, informed Dr Goodwin as instructed by Dr Boateng. Awaiting response.
--- NOTE | 2019-09-21 19:41 | NUR ---
HAND-OFF: Report given to markie.
--- NOTE | 2019-09-21 19:42 | NUR ---
NURSE NOTES: Received report from Ada RN. Rounding is done with outgoing nurse. Patient in bed, a/o x4. No c/o pain or any distress at this time. IV site is intact and patient. Iv fluid is running. Bed is on alarm, locked, Lowest position. Call light within reach. Will continue to monitor.
[2019-09-21 20:00] VITALS: BP 120/80
[2019-09-21] MEDS: Miralax 17gm pkt ORAL SCH (21:49)
[2019-09-22] VITALS: BP 123/73
[2019-09-22] MEDS: Potassium Chloride 20 MEQ in Dextrose 5%/Lactated Ringer's 1,000 ML IV SCH ×3 (00:01→17:27)
--- NOTE | 2019-09-22 02:01 | NUR ---
HAND-OFF: Report given to Ml CASTELLANOS. Patient in stable condition.
--- NOTE | 2019-09-22 02:15 | NUR ---
NURSE NOTES: Received report from German Floyd RN to continue to care. Pt resting in bed, on room air. Pt c/o pain 7/10 on abd and constipation. Provided hot pack. Iv intact and running IVF. Will give pain med as scheduled. Will continue to monitor.
[2019-09-22 04:00] VITALS: BP 136/88
[2019-09-22] MEDS: ceFAZolin sod 1 GM in D5W 55 ML IVP SCH ×3 (05:13→21:35)
[2019-09-22 07:14] LABS: BASOPHILS % (AUTO) 0.7 % (0.0-2.0); EOSINOPHILS % (AUTO) 0.5 % (0.0-3.0); HEMATOCRIT 29.7 % (37.0-47.0); HEMOGLOBIN 9.2 G/DL (12.0-16.0); LYMPHOCYTES % (AUTO) 11.4 % (20.0-45.0); MEAN CORPUSCULAR VOLUME 76 FL (80-99); MONOCYTES % (AUTO) 9.3 % (1.0-10.0); NEUTROPHILS % (AUTO) 78.1 % (45.0-75.0); PLATELET COUNT 219 K/UL (150-450); RED BLOOD COUNT 3.93 M/UL (4.20-5.40); RED CELL DISTRIBUTION WIDTH 19.6 % (11.6-14.8); WHITE BLOOD COUNT 9.8 K/UL (4.8-10.8)
--- NOTE | 2019-09-22 07:30 | NUR ---
NURSE NOTES: Pt lying in bed w/bed in lowest position and call light within reach. Pt A&Ox4, VSS, and in no apparent distress; pt c/o 6/10 pain for which she was just given Dilaudid 2 mg IVP by security shift manager RN. IV site intact/asymptomatic w/IVF infusing; band aid over surgical site C/D/I; and hyperactive bowel sounds noted on auscultation but pt has yet to have BM. Will continue to monitor.
[2019-09-22 07:34] LABS: ALANINE AMINOTRANSFERASE 17 U/L (12-78); ALBUMIN 3.1 G/DL (3.4-5.0); ALBUMIN/GLOBULIN RATIO 0.8 (1.0-2.7); ALKALINE PHOSPHATASE 50 U/L (46-116); ANION GAP 7 mmol/L (5-15); ASPARTATE AMINO TRANSFERASE 11 U/L (15-37); BILIRUBIN,TOTAL 0.3 MG/DL (0.2-1.0); BLOOD UREA NITROGEN 1 mg/dL (7-18); CARBON DIOXIDE 29 MMOL/L (21-32); CHLORIDE 102 MMOL/L (98-107); CREATININE 0.5 MG/DL (0.55-1.30); POTASSIUM 3.7 MMOL/L (3.5-5.1); SODIUM 138 MMOL/L (136-145)
[2019-09-22 07:37] LABS: % IRON SATURATION 6 % (15-50); IRON 21 ug/dL (50-175); TOTAL IRON BINDING CAPACITY 350 ug/dL (250-450)
--- NOTE | 2019-09-22 07:38 | NUR ---
HAND-OFF: Report given to EMANUEL Hoffmann.
[2019-09-22 08:00] VITALS: BP 130/80
[2019-09-22] MEDS: Lactulose 20gm/30ml UDC ORAL SCH ×3 (09:14→17:27)
[2019-09-22] MEDS: Docusate 100mg cap ORAL SCH ×2 (09:14→17:27)
[2019-09-22 12:00] VITALS: BP 126/77
--- NOTE | 2019-09-22 12:26 | General Surgery Progress Note ---
General Surgery-Progress Note Subjective Procedure Performed uterine artery embolization Symptoms: improved, tolerating diet, voiding well, passing flatus, BM, pain decreased Objective Last 24 Hour Vital Signs Date Time Temp Pulse Resp B/P (MAP) Pulse Ox O2 Delivery O2 Flow Rate FiO2 09/22/19 12:00 98.5 52 18 126/77 (93) 100 09/22/19 08:00 98.9 53 18 130/80 (97) 100 09/22/19 04:00 98.0 57 18 136/88 (104) 95 09/22/19 00:00 99.7 57 18 123/73 (90) 94 09/21/19 21:00 Room Air 09/21/19 20:00 100.1 58 18 120/80 (93) 93 09/21/19 16:00 98.0 60 18 97 I&O Intake and Output 09/21/19 09/22/19 19:00 07:00 Intake Total 1305 ml Balance 1305 ml IV Total 1305 ml # Voids 2 Dressing: dry Wound: clean Drains: none Cardiovascular: RSR Respiratory: clear Abdomen: soft, flat, scaphoid, present bowel sounds Extremities: no edema, no tenderness, no cyanosis Laboratory Tests Test 09/22/19 05:00 White Blood Count 9.8 K/UL (4.8-10.8) Red Blood Count 3.93 M/UL (4.20-5.40) L Hemoglobin 9.2 G/DL (12.0-16.0) L Hematocrit 29.7 % (37.0-47.0) L Mean Corpuscular Volume 76 FL (80-99) L Mean Corpuscular Hemoglobin 23.4 PG (27.0-31.0) L Mean Corpuscular Hemoglobin Concent 30.9 G/DL (32.0-36.0) L Red Cell Distribution Width 19.6 % (11.6-14.8) H Platelet Count 219 K/UL (150-450) Mean Platelet Volume 8.4 FL (6.5-10.1) Neutrophils (%) (Auto) 78.1 % (45.0-75.0) H Lymphocytes (%) (Auto) 11.4 % (20.0-45.0) L Monocytes (%) (Auto) 9.3 % (1.0-10.0) Eosinophils (%) (Auto) 0.5 % (0.0-3.0) Basophils (%) (Auto) 0.7 % (0.0-2.0) Sodium Level 138 MMOL/L (136-145) Potassium Level 3.7 MMOL/L (3.5-5.1) Chloride Level 102 MMOL/L (98-107) Carbon Dioxide Level 29 MMOL/L (21-32) Anion Gap 7 mmol/L (5-15) Blood Urea Nitrogen 1 mg/dL (7-18) L Creatinine 0.5 MG/DL (0.55-1.30) L Estimat Glomerular Filtration Rate > 60 mL/min (>60) Glucose Level 111 MG/DL (74-106) H Calcium Level 9.0 MG/DL (8.5-10.1) Iron Level 21 ug/dL (50-175) L Total Iron Binding Capacity 350 ug/dL (250-450) Percent Iron Saturation 6 % (15-50) L Unsaturated Iron Binding 329 ug/dL (112-346) Total Bilirubin 0.3 MG/DL (0.2-1.0) Aspartate Amino Transf (AST/SGOT) 11 U/L (15-37) L Alanine Aminotransferase (ALT/SGPT) 17 U/L (12-78) Alkaline Phosphatase 50 U/L (46-116) Total Protein 7.1 G/DL (6.4-8.2) Albumin 3.1 G/DL (3.4-5.0) L Globulin 4.0 g/dL Albumin/Globulin Ratio 0.8 (1.0-2.7) L Assessment Additional Comments watery BM will advance diet to full liquids. labs reviewed. offer norco for moderate pain. Joseph Mason MD Sep 22, 2019 12:26
[2019-09-22] MEDS: HYDROcodone/Acetamin 5/325 tab ORAL PRN ×3 (13:41→21:35)
--- NOTE | 2019-09-22 14:07 | Pulmonology Progress Note ---
Assessment/Plan Problems: (1) Uncontrolled Post Procedure Pain Assessment/Plan ASSESSMENT: * Uterine fibroids S/P UFE * Post-op pain * Constipation, likely opiate induced * Anemia PLAN: * Pain control/supportive care * Bowel regimen * IS * F/U Dr. Mason recs * F/U GI recs * DVT Px: OOB, encourage ambulation, SCD's * FC * Dispo planning, likely home in am if pain controlled on PO meds Subjective Allergies: Coded Allergies: No Known Allergies (Unverified , 09/20/19) Subjective AFVSS x SB on RA No F/C, no CP, no SOB Pain better + BM + flatus Objective Last 24 Hour Vital Signs Date Time Temp Pulse Resp B/P (MAP) Pulse Ox O2 Delivery O2 Flow Rate FiO2 09/22/19 12:00 98.5 52 18 126/77 (93) 100 09/22/19 09:00 Room Air 09/22/19 08:00 98.9 53 18 130/80 (97) 100 09/22/19 04:00 98.0 57 18 136/88 (104) 95 09/22/19 00:00 99.7 57 18 123/73 (90) 94 09/21/19 21:00 Room Air 09/21/19 20:00 100.1 58 18 120/80 (93) 93 09/21/19 16:00 98.0 60 18 97 Intake and Output 09/21/19 09/22/19 19:00 07:00 Intake Total 1305 ml Balance 1305 ml IV Total 1305 ml # Voids 2 General Appearance: WD/WN, no acute distress HEENT: normocephalic, atraumatic, anicteric, mucous membranes moist Respiratory/Chest: chest wall non-tender, lungs clear, normal breath sounds, no respiratory distress, no accessory muscle use Cardiovascular: normal peripheral pulses, regular rhythm, bradycardia Abdomen: normal bowel sounds, soft, non tender, no organomegaly, non distended , no mass Extremities: no cyanosis, no clubbing, no edema Laboratory Tests 09/22/19 05:00: White Blood Count 9.8, Red Blood Count 3.93L, Hemoglobin 9.2L, Hematocrit 29.7L , Mean Corpuscular Volume 76L, Mean Corpuscular Hemoglobin 23.4L, Mean Corpuscular Hemoglobin Concent 30.9L, Red Cell Distribution Width 19.6H, Platelet Count 219, Mean Platelet Volume 8.4, Neutrophils (%) (Auto) 78.1H, Lymphocytes (%) (Auto) 11.4L, Monocytes (%) (Auto) 9.3, Eosinophils (%) (Auto) 0.5, Basophils (%) (Auto) 0.7, Sodium Level 138, Potassium Level 3.7, Chloride Level 102, Carbon Dioxide Level 29, Anion Gap 7, Blood Urea Nitrogen 1L, Creatinine 0.5L, Estimat Glomerular Filtration Rate > 60, Glucose Level 111H, Calcium Level 9.0, Iron Level 21L, Total Iron Binding Capacity 350, Percent Iron Saturation 6L, Unsaturated Iron Binding 329, Total Bilirubin 0.3, Aspartate Amino Transf (AST/SGOT) 11L, Alanine Aminotransferase (ALT/SGPT) 17, Alkaline Phosphatase 50, Total Protein 7.1, Albumin 3.1L, Globulin 4.0, Albumin/ Globulin Ratio 0.8L Current Medications Medications (Trade) Dose Ordered Sig/Rani Route PRN Reason Start Time Stop Time Status Last Admin Dose Admin Acetaminophen/ Hydrocodone Bitart ([place] 5/325) 1 tab Q3H PRN ORAL Moderate Pain (Pain Scale 4-6) 09/22/19 12:30 09/29/19 12:29 09/22/19 13:41 Barium Sulfate (Readi-Cat 2) 450 ml NOW PRN ORAL Radiology Procedure 09/20/19 20:15 09/22/19 20:15 Cefazolin Sodium 1 gm/Dextrose 55 ml @ 110 mls/hr Q8HR IVP 09/20/19 23:30 09/27/19 23:29 09/22/19 05:13 Docusate Sodium (Colace) 100 mg TWICE A DAY ORAL 09/21/19 09:00 10/21/19 08:59 09/22/19 09:14 Hydromorphone HCl (Dilaudid) 2 mg Q2H PRN IVP Severe Pain (Pain Scale 7-10) 09/20/19 21:45 09/27/19 21:44 09/21/19 13:51 Iohexol (OMNIPAQUE-300 100ml) 100 ml NOW PRN INJ Radiology Procedure 09/20/19 20:15 09/22/19 20:15 Iron Sucrose 100 mg/Sodium Chloride 60 ml @ 240 mls/hr BEDTIME IV 09/22/19 21:00 09/26/19 21:14 Lactulose (Cephulac) 20 gm THREE TIMES A DAY ORAL 09/21/19 09:00 10/21/19 08:59 09/22/19 13:41 Magnesium Hydroxide (Mom) 30 ml DAILYPRN PRN ORAL Constipation 09/21/19 14:45 10/21/19 14:44 09/22/19 04:17 Methylnaltrexone [place] (Relistor) 12 mg QOD SUBQ 09/21/19 09:00 10/21/19 08:59 09/21/19 10:27 Ondansetron HCl (Zofran) 4 mg Q6H PRN IVP Nausea & Vomiting 09/20/19 21:45 10/20/19 21:44 Polyethylene Glycol (Miralax) 17 gm BEDTIME ORAL 09/21/19 21:00 10/21/19 20:59 09/21/19 21:49 Potassium Chloride 20 meq/ Dextrose/Lactated Ringer's 1,010 ml @ 125 mls/hr Q8H5M IV 09/20/19 23:00 10/20/19 22:59 09/22/19 09:14 Blaine Benz MD Sep 22, 2019 14:07
--- NOTE | 2019-09-22 14:11 | Surgery Progress Note ---
Surgery Progress Note Subjective Symptoms: improved, not tolerating diet, voiding well, passing flatus, pain decreased Objective Last 24 Hour Vital Signs Date Time Temp Pulse Resp B/P (MAP) Pulse Ox O2 Delivery O2 Flow Rate FiO2 09/22/19 12:00 98.5 52 18 126/77 (93) 100 09/22/19 09:00 Room Air 09/22/19 08:00 98.9 53 18 130/80 (97) 100 09/22/19 04:00 98.0 57 18 136/88 (104) 95 09/22/19 00:00 99.7 57 18 123/73 (90) 94 09/21/19 21:00 Room Air 09/21/19 20:00 100.1 58 18 120/80 (93) 93 09/21/19 16:00 98.0 60 18 97 I&O Intake and Output 09/21/19 09/22/19 18:59 06:59 Intake Total 1305 ml Balance 1305 ml IV Total 1305 ml # Voids 2 Cardiovascular: RSR Respiratory: clear Abdomen: soft, flat, tenderness, present bowel sounds, non-distended Extremities: no edema, no tenderness, no cyanosis Laboratory Tests Test 09/22/19 05:00 White Blood Count 9.8 K/UL (4.8-10.8) Red Blood Count 3.93 M/UL (4.20-5.40) L Hemoglobin 9.2 G/DL (12.0-16.0) L Hematocrit 29.7 % (37.0-47.0) L Mean Corpuscular Volume 76 FL (80-99) L Mean Corpuscular Hemoglobin 23.4 PG (27.0-31.0) L Mean Corpuscular Hemoglobin Concent 30.9 G/DL (32.0-36.0) L Red Cell Distribution Width 19.6 % (11.6-14.8) H Platelet Count 219 K/UL (150-450) Mean Platelet Volume 8.4 FL (6.5-10.1) Neutrophils (%) (Auto) 78.1 % (45.0-75.0) H Lymphocytes (%) (Auto) 11.4 % (20.0-45.0) L Monocytes (%) (Auto) 9.3 % (1.0-10.0) Eosinophils (%) (Auto) 0.5 % (0.0-3.0) Basophils (%) (Auto) 0.7 % (0.0-2.0) Sodium Level 138 MMOL/L (136-145) Potassium Level 3.7 MMOL/L (3.5-5.1) Chloride Level 102 MMOL/L (98-107) Carbon Dioxide Level 29 MMOL/L (21-32) Anion Gap 7 mmol/L (5-15) Blood Urea Nitrogen 1 mg/dL (7-18) L Creatinine 0.5 MG/DL (0.55-1.30) L Estimat Glomerular Filtration Rate > 60 mL/min (>60) Glucose Level 111 MG/DL (74-106) H Calcium Level 9.0 MG/DL (8.5-10.1) Iron Level 21 ug/dL (50-175) L Total Iron Binding Capacity 350 ug/dL (250-450) Percent Iron Saturation 6 % (15-50) L Unsaturated Iron Binding 329 ug/dL (112-346) Total Bilirubin 0.3 MG/DL (0.2-1.0) Aspartate Amino Transf (AST/SGOT) 11 U/L (15-37) L Alanine Aminotransferase (ALT/SGPT) 17 U/L (12-78) Alkaline Phosphatase 50 U/L (46-116) Total Protein 7.1 G/DL (6.4-8.2) Albumin 3.1 G/DL (3.4-5.0) L Globulin 4.0 g/dL Albumin/Globulin Ratio 0.8 (1.0-2.7) L Plan Problems: (1) Uncontrolled Post Procedure Pain Assessment & Plan: 34-year-old female with severe abdominal pain post procedure. Constipation. CT reviewed labs reviewed. No acute surgical intervention indicated recommended. Patient likely severely constipated as well as having post procedure pain. No acute surgical intra-abdominal process identified though her exam does elicit a fair amount of tenderness. Will follow with recommendations and serial abdominal examinations. Trend labs. IV antibiotics. Bowel regimen. Patient will be monitored closely. Thank you for let me participate in patient's care Findings: Uterus is enlarged, with multiple masses. The 2 largest of these are enhancing, contains linear collections of gas. A small amount of free fluid in the pelvic cul-de-sac. The ovaries are unremarkable. Appendix is not definitely visualized, but there are no findings to suggest acute appendicitis. The ascending colon is stool-filled. The transverse colon is gas filled and borderline distended. The descending colon is nondistended. Small bowel loops are nondistended, although a few small bowel loops are mildly fluid-filled and prominent. The distal esophagus, stomach, duodenum are unremarkable. The gallbladder contains what is presumably contrast from the prior uterine fibroid embolization procedure. The liver, bile ducts, pancreas, spleen, adrenals, kidneys are all unremarkable. No retroperitoneal mass or adenopathy.. A a single bubble of gas is seen within the bladder lumen. The included lung bases are clear. The bones are unremarkable. Impression: Typical appearance of the uterus, status post uterine fibroid embolization. No definite unusual features No definite acute process otherwise Stool-filled proximal colon, likely related to stated clinical history of constipation Prominent gas in the transverse colon, of doubtful significance Single bubble of gas within the bladder lumen, probably related to prior recent instrumentation. Kip Avalos Sep 22, 2019 14:11
--- NOTE | 2019-09-22 14:49 | General Progress Note ---
Assessment/Plan Assessment/Plan: Assessment - s/p UAE - Post op pain - constipation - anemia - hematuria Recommendations - laxatives - Add mag citrate and dulcolax supp - pain control - OOB - liquid diet Subjective Allergies: Coded Allergies: No Known Allergies (Unverified , 09/20/19) Subjective No BM since Tues pain better d/w RN Objective Last 24 Hour Vital Signs Date Time Temp Pulse Resp B/P (MAP) Pulse Ox O2 Delivery O2 Flow Rate FiO2 09/22/19 12:00 98.5 52 18 126/77 (93) 100 09/22/19 09:00 Room Air 09/22/19 08:00 98.9 53 18 130/80 (97) 100 09/22/19 04:00 98.0 57 18 136/88 (104) 95 09/22/19 00:00 99.7 57 18 123/73 (90) 94 09/21/19 21:00 Room Air 09/21/19 20:00 100.1 58 18 120/80 (93) 93 09/21/19 16:00 98.0 60 18 97 Intake and Output 09/21/19 09/22/19 19:00 07:00 Intake Total 1305 ml 125 ml Balance 1305 ml 125 ml IV Total 1305 ml 125 ml # Voids 2 Laboratory Tests 09/22/19 05:00: White Blood Count 9.8, Red Blood Count 3.93L, Hemoglobin 9.2L, Hematocrit 29.7L , Mean Corpuscular Volume 76L, Mean Corpuscular Hemoglobin 23.4L, Mean Corpuscular Hemoglobin Concent 30.9L, Red Cell Distribution Width 19.6H, Platelet Count 219, Mean Platelet Volume 8.4, Neutrophils (%) (Auto) 78.1H, Lymphocytes (%) (Auto) 11.4L, Monocytes (%) (Auto) 9.3, Eosinophils (%) (Auto) 0.5, Basophils (%) (Auto) 0.7, Sodium Level 138, Potassium Level 3.7, Chloride Level 102, Carbon Dioxide Level 29, Anion Gap 7, Blood Urea Nitrogen 1L, Creatinine 0.5L, Estimat Glomerular Filtration Rate > 60, Glucose Level 111H, Calcium Level 9.0, Iron Level 21L, Total Iron Binding Capacity 350, Percent Iron Saturation 6L, Unsaturated Iron Binding 329, Total Bilirubin 0.3, Aspartate Amino Transf (AST/SGOT) 11L, Alanine Aminotransferase (ALT/SGPT) 17, Alkaline Phosphatase 50, Total Protein 7.1, Albumin 3.1L, Globulin 4.0, Albumin/ Globulin Ratio 0.8L Height (Feet): 5 Height (Inches): 7.00 Weight (Pounds): 155 Objective WDWN AA woman NCAT supple CTA RRR abd mildly distended, Soft no edema Abraham Singh MD Sep 22, 2019 14:49
[2019-09-22 16:00] VITALS: BP 102/63
[2019-09-22] MEDS ORDERED: Magnesium Citrate Liq Btl ORAL ONE (16:00)
--- NOTE | 2019-09-22 19:26 | NUR ---
HAND-OFF: Report given to EMANUEL Juares.
--- NOTE | 2019-09-22 19:30 | NUR ---
NURSE NOTES: Received report & pt from EMANUEL Hoffmann. Pt lying in bed, a&ox4, in room air. No s/s of acute distress & c/0 03/03 pain at this time. IV intact with IVF running as ordered. Plan of care discussed. Addendum: 09/22/19 at 2046 by Blanquita Ignacio RN CORRECTION: c/o 09/03 pain
[2019-09-22 20:00] VITALS: BP 112/75
[2019-09-22] MEDS: Miralax 17gm pkt ORAL SCH (20:12)
--- NOTE | 2019-09-22 20:54 | NUR ---
NURSE NOTES: Pt requesting for sleeping pill, no order in e[facility]. Informed Dr. Benz; Received new order for Ambien 5mg PO QHS PRN. Orders noted & carried out. Addendum: 09/22/19 at 2351 by Blanquita Ignacio RN CORRECTION: WRONG TIME.
[2019-09-22] MEDS ORDERED: Iron Sucrose 100 MG in NS 55 ML IV SCH (21:00)
--- NOTE | 2019-09-22 21:35 | NUR ---
NURSE NOTES: Allen 5/325 1Tab PO Q3HR PRN given for 5/10 lower abdominal pain. Pt requested to wake her up in 3 hours if she's asleep for pain medication.
--- NOTE | 2019-09-22 22:54 | NUR ---
NURSE NOTES: Pt requesting for sleeping pill, no order in e[facility]. Informed Dr. Benz; Received new order for Ambien 5mg PO QHS PRN. Orders noted & carried out.
[2019-09-22] MEDS ORDERED: Zolpidem 5mg tab ORAL PRN (23:00)
[2019-09-23] VITALS: BP 121/83
[2019-09-23] MEDS: HYDROcodone/Acetamin 5/325 tab ORAL PRN (00:35)
[2019-09-23 03:34] VITALS: BP 105/70
[2019-09-23] MEDS: ceFAZolin sod 1 GM in D5W 55 ML IVP SCH ×2 (05:10→14:00)
--- NOTE | 2019-09-23 06:52 | NUR ---
NURSE NOTES: @0329: Pt complaining of 9/10 pain. Offered [place] first however pt wanted Dilaudid IV. Dilaudid given. @0652: Pt complaining of 6/10 pain. Offered [place] 1st since it's due & Dilaudid was given @ 0329. Pt again requested for Dilaudid. Per pt, "It takes 45mins for the [place] to kick in. I just want to go back to sleep. I want Dilaudid instead". Educated pt & pt still does not want to take [place]. Per pt, "Does [place] come in a liquid form? [place] doesn't make me feel good." Dilaudid given per pt's request.
[2019-09-23 07:13] LABS: HEMATOCRIT 28.5 % (37.0-47.0); HEMOGLOBIN 8.8 G/DL (12.0-16.0); LYMPHOCYTES % (AUTO) 15.6 % (20.0-45.0); MEAN CORPUSCULAR VOLUME 76 FL (80-99); MONOCYTES % (AUTO) 13.4 % (1.0-10.0); PLATELET COUNT 195 K/UL (150-450); RED BLOOD COUNT 3.74 M/UL (4.20-5.40); RED CELL DISTRIBUTION WIDTH 19.5 % (11.6-14.8); WHITE BLOOD COUNT 7.3 K/UL (4.8-10.8)
--- NOTE | 2019-09-23 07:27 | NUR ---
HAND-OFF: Report given to EMANUEL Hoffmann. Pt in stable condition.
--- NOTE | 2019-09-23 07:27 | General Progress Note ---
Assessment/Plan Assessment/Plan: Assessment - s/p [place] - Post op pain - improving - constipation - resolved - anemia - hematuria Recommendations - laxatives PRN - pain control - OOB - diet per surgery Subjective Allergies: Coded Allergies: No Known Allergies (Unverified , 09/20/19) Subjective Had 6 BM yesterday still with abd pain, but better some issues with narcotics Objective Last 24 Hour Vital Signs Date Time Temp Pulse Resp B/P (MAP) Pulse Ox O2 Delivery O2 Flow Rate FiO2 09/23/19 03:34 98.6 54 18 105/70 (82) 96 09/23/19 00:00 98.6 56 17 121/83 (96) 96 09/22/19 21:00 Room Air 09/22/19 20:00 99.0 60 16 112/75 (87) 98 09/22/19 16:00 99.3 49 18 102/63 (76) 98 09/22/19 12:00 98.5 52 18 126/77 (93) 100 09/22/19 09:00 Room Air 09/22/19 08:00 98.9 53 18 130/80 (97) 100 Intake and Output 09/22/19 09/23/19 19:00 07:00 Intake Total 1617.5 ml 1480 ml Balance 1617.5 ml 1480 ml Intake Oral 500 ml 480 ml IV Total 1117.5 ml 1000 ml # Voids 3 3 # Bowel Movements 3 Laboratory Tests 09/23/19 04:50: White Blood Count 7.3, Red Blood Count 3.74L, Hemoglobin 8.8L, Hematocrit 28.5L , Mean Corpuscular Volume 76L, Mean Corpuscular Hemoglobin 23.6L, Mean Corpuscular Hemoglobin Concent 31.0L, Red Cell Distribution Width 19.5H, Platelet Count 195, Mean Platelet Volume 8.9, Neutrophils (%) (Auto) 68.0, Lymphocytes (%) (Auto) 15.6L, Monocytes (%) (Auto) 13.4H, Eosinophils (%) (Auto ) 2.0, Basophils (%) (Auto) 1.0, Sodium Level [Pending], Potassium Level [ Pending], Chloride Level [Pending], Carbon Dioxide Level [Pending], Blood Urea Nitrogen [Pending], Creatinine [Pending], Estimat Glomerular Filtration Rate [ Pending], Glucose Level [Pending], Calcium Level [Pending], Total Bilirubin [ Pending], Aspartate Amino Transf (AST/SGOT) [Pending], Alanine Aminotransferase (ALT/SGPT) [Pending], Alkaline Phosphatase [Pending], Total Protein [Pending], Albumin [Pending], Globulin [Pending] Height (Feet): 5 Height (Inches): 7.00 Weight (Pounds): 155 Objective WDWN AA woman NCAT supple CTA RRR abd mildly distended, Soft no edema Abraham Singh MD Sep 23, 2019 07:27
[2019-09-23 07:56] LABS: ALANINE AMINOTRANSFERASE 13 U/L (12-78); ALBUMIN/GLOBULIN RATIO 0.8 (1.0-2.7); ALKALINE PHOSPHATASE 47 U/L (46-116); ANION GAP 10 mmol/L (5-15); ASPARTATE AMINO TRANSFERASE 19 U/L (15-37); BILIRUBIN,TOTAL 0.3 MG/DL (0.2-1.0); BLOOD UREA NITROGEN 1 mg/dL (7-18); CALCIUM 8.9 MG/DL (8.5-10.1); CARBON DIOXIDE 28 MMOL/L (21-32); CHLORIDE 102 MMOL/L (98-107); CREATININE 0.6 MG/DL (0.55-1.30); POTASSIUM 3.7 MMOL/L (3.5-5.1); SODIUM 140 MMOL/L (136-145)
[2019-09-23 08:00] VITALS: BP 105/65
[2019-09-23] MEDS: Potassium Chloride 20 MEQ in Dextrose 5%/Lactated Ringer's 1,000 ML IV SCH ×2 (08:58→13:00)
[2019-09-23] MEDS: Lactulose 20gm/30ml UDC ORAL SCH ×4 (09:00→17:31)
[2019-09-23] MEDS: Relistor 12mg/0.6ml Vial SUBQ SCH (09:01)
[2019-09-23] MEDS: Docusate 100mg cap ORAL SCH ×2 (09:01→17:31)
[2019-09-23] MEDS: oxyCODONE HCL/Acetaminophen 5/325mg ORAL PRN ×3 (10:09→20:09)
--- NOTE | 2019-09-23 11:30 | NUR ---
NURSE NOTES: Took patient's home meds/narcotics down to pharmacy for safe keeping; pt agreeable and aware.
--- NOTE | 2019-09-23 11:57 | General Surgery Progress Note ---
General Surgery-Progress Note Subjective Procedure Performed uterine artery embolization Symptoms: tolerating diet, voiding well, passing flatus, BM Objective Last 24 Hour Vital Signs Date Time Temp Pulse Resp B/P (MAP) Pulse Ox O2 Delivery O2 Flow Rate FiO2 09/23/19 09:00 Room Air 09/23/19 08:00 97.1 54 19 105/65 (78) 96 09/23/19 03:34 98.6 54 18 105/70 (82) 96 09/23/19 00:00 98.6 56 17 121/83 (96) 96 09/22/19 21:00 Room Air 09/22/19 20:00 99.0 60 16 112/75 (87) 98 09/22/19 16:00 99.3 49 18 102/63 (76) 98 09/22/19 12:00 98.5 52 18 126/77 (93) 100 I&O Intake and Output 09/22/19 09/23/19 19:00 07:00 Intake Total 1617.5 ml 1480 ml Balance 1617.5 ml 1480 ml Intake Oral 500 ml 480 ml IV Total 1117.5 ml 1000 ml # Voids 3 3 # Bowel Movements 3 Dressing: dry Wound: clean Drains: none Cardiovascular: RSR Abdomen: soft, flat, scaphoid, present bowel sounds Extremities: no edema, no tenderness, no cyanosis Laboratory Tests Test 09/23/19 04:50 White Blood Count 7.3 K/UL (4.8-10.8) Red Blood Count 3.74 M/UL (4.20-5.40) L Hemoglobin 8.8 G/DL (12.0-16.0) L Hematocrit 28.5 % (37.0-47.0) L Mean Corpuscular Volume 76 FL (80-99) L Mean Corpuscular Hemoglobin 23.6 PG (27.0-31.0) L Mean Corpuscular Hemoglobin Concent 31.0 G/DL (32.0-36.0) L Red Cell Distribution Width 19.5 % (11.6-14.8) H Platelet Count 195 K/UL (150-450) Mean Platelet Volume 8.9 FL (6.5-10.1) Neutrophils (%) (Auto) 68.0 % (45.0-75.0) Lymphocytes (%) (Auto) 15.6 % (20.0-45.0) L Monocytes (%) (Auto) 13.4 % (1.0-10.0) H Eosinophils (%) (Auto) 2.0 % (0.0-3.0) Basophils (%) (Auto) 1.0 % (0.0-2.0) Sodium Level 140 MMOL/L (136-145) Potassium Level 3.7 MMOL/L (3.5-5.1) Chloride Level 102 MMOL/L (98-107) Carbon Dioxide Level 28 MMOL/L (21-32) Anion Gap 10 mmol/L (5-15) Blood Urea Nitrogen 1 mg/dL (7-18) L Creatinine 0.6 MG/DL (0.55-1.30) Estimat Glomerular Filtration Rate > 60 mL/min (>60) Glucose Level 91 MG/DL (74-106) Calcium Level 8.9 MG/DL (8.5-10.1) Total Bilirubin 0.3 MG/DL (0.2-1.0) Aspartate Amino Transf (AST/SGOT) 19 U/L (15-37) Alanine Aminotransferase (ALT/SGPT) 13 U/L (12-78) Alkaline Phosphatase 47 U/L (46-116) Total Protein 6.9 G/DL (6.4-8.2) Albumin 3.0 G/DL (3.4-5.0) L Globulin 3.9 g/dL Albumin/Globulin Ratio 0.8 (1.0-2.7) L Plan Additional Comments decreased pain, will discharge if ok w Joseph Mendiola MD Sep 23, 2019 11:57
[2019-09-23 12:00] VITALS: BP 116/66
[2019-09-23 17:00] VITALS: BP 115/70
--- NOTE | 2019-09-23 17:56 | Discharge Summary ---
Discharge Summary Discharge Summary _ DICT # [id number] Blaine Benz MD Sep 23, 2019 17:56
--- NOTE | 2019-09-23 19:57 | NUR ---
HAND-OFF: Report given to EMANUEL Thrasher. Endorsed to please return pt's home meds from pharmacy.
[2019-09-23] MEDS ORDERED: AUGMENTIN 875-1 EAC1 ORAL (20:05)
[2019-09-23] MEDS ORDERED: TRAMADOL HCL50 MG ORAL (20:06)
[2019-09-23] MEDS ORDERED: PERCOCET 5-3251 EACH ORAL (20:06)
--- NOTE | 2019-09-23 21:00 | NUR ---
NURSES NOTE: Received report from EMANUEL Hoffmann, who also processed d/c paperwork. Pt discharged at 2044. Stable condition upon discharge. Home meds given to patient.
--- NOTE | 2019-09-24 04:45 | Discharge Summary ---
DATE OF ADMISSION: 09/20/2019 DATE OF DISCHARGE: 09/23/2019 ADMISSION DIAGNOSES: 1. Postoperative pain. 2. Uterine fibroids, status post uterine fibroid embolization. 3. Constipation, likely opiate induced. 4. Anemia. DISCHARGE DIAGNOSES: 1. Postoperative pain, improved. 2. Uterine fibroids, status post uterine fibroid embolization. 3. Constipation, likely opiate induced, improved with a bowel movement during admission. 4. Anemia. HISTORY OF PRESENT ILLNESS: The patient is a 34-year-old female with history of fibroids status post uterine fibroid embolization with postoperative pain, presenting to the hospital with constipation and uncontrolled pain. HOSPITAL COURSE: The patient was admitted to the hospital, underwent a bowel regimen, had improvement in her pain after subsequent bowel movements. She was seen by General Surgery, OB, and GI. With her bowel regimen, was doing better and on the day of discharge, she was afebrile with stable vital signs except for baseline sinus bradycardia. Her laboratory workup was unremarkable and she was cleared for discharge by all consultants. CONSULTANTS: 1. Gynecology, Joseph Mason M.D. 2. GI, Ashvin Goodwin M.D. 3. General Surgery, Kip Avalos M.D. PROCEDURES: None. DISCHARGE MEDICATION: List per EMR. DISCHARGE DISPOSITION: Home. DISCHARGE CONDITION: Good. DISCHARGE FOLLOW UP: With Dr. Mason as directed. DISCHARGE RETURN PRECAUTIONS: Given to the patient, who verbalized understanding. Blaine Benz M.D. DR: GONZALO JOB#: [id number] CC:
--- NOTE | 2019-09-24 09:50 | NUR ---
*-* INSURANCE *-* ALL CLINICALS HAVE BEEN FAXED TO: [facility] LI:BRENDAN F: [phone] Addendum: 09/24/19 at 0958 by GATO ALBRECHT CM REF# [id number]
== END 2019-09-23 20:45 | disposition home or self-care (01) | DRG 948 ==
LOC: EMR 20:49 → 3E 21:02 → EDBEDREQ 21:23
DX: G89.18 Other acute postprocedural pain (principal); D25.9 Leiomyoma of uterus, unspecified; K59.03 Drug induced constipation; T40.605A Adverse effect of unspecified narcotics, initial encounter; D64.9 Anemia, unspecified
CPT/HCPCS: 36415; 74177; 80053; 81003; 83540; 83550; 85025; 85610; 85730; 96361; 96374; 96375; 96376; 99285; J2405; J7030; J8499